=== PATIENT | female | born 1995 | race Caucasian/White ===

== ENCOUNTER 2017-10-02 00:31 | Emergency (ER) | payer SELFPAY ==
[2017-10-02] MEDS ORDERED: NS 0.9% 1000 ML* 2,000 ML IV ONE (00:46)
[2017-10-02] MEDS ORDERED: Metoclopramide IV* 5 MG/ML 2 ML VIAL IV ONE (00:46)
[2017-10-02] MEDS ORDERED: Ketorolac INJ* 30 MG/ML 1 ML VIAL IV ONE (00:46)
[2017-10-02 01:43] LABS: ABS Basophils 0.1 10^3/ul (0-0.2); ABS Eosinophils 0.1 10^3/ul (0-0.6); ABS Lymphocytes 1.4 10^3/ul (1.0-4.8); ABS Monocytes 0.7 10^3/ul (0-0.8); ABS Neutrophils 12.8 10^3/ul (1.5-7.7); ABS Nucleated RBC 0 10^3/ul; Eosinophil % 0.4 % (0-6); Hematocrit 44 % (35-47); Lymphocyte % 9.1 % (25-47); Mean Corpuscular HGB Conc 34 g/dl (31-36); Mean Corpuscular Hemoglobin 31 pg (27-31); Mean Corpuscular Volume 90 fL (80-97); Mean Platelet Volume 7.9 um3 (7.4-10.4); Nucleated Red Blood Cells % 0; Platelet Count 251 10^3/ul (150-450); Red Blood Count 4.91 10^6/ul (4.00-5.40); Red Cell Distribution Width 13 % (10.5-15); White Blood Count 14.9 10^3/ul (3.5-10.8)
[2017-10-02 02:00] LABS: EGFR Non-African American 76.1 (>60)
--- NOTE | 2017-10-02 03:46 | ED ---
Abdominal Pain/Female - HPI Summary HPI Summary: This is scribe Aurelio Martines documenting for attending Kristian Cabezas M.D. Patient is a 22 y/o F BIBA w/ c/o N/V since 2200 on 10/01/17. In the room, patient notes she is mostly dry heaving at this point. In the room, lower abdominal pain and fever is noted as well. Diarrhea is denied. Patient is concerned about food poisoning. On triage, pain is rated 5/10 and nothing is noted to aggravate/alleviate Sx. Home medications and allergies are reviewed. I, Dr. Cabezas, personally performed the services described in this documentation as scribed in my presence and it is both accurate and complete. - History of Current Complaint Chief Complaint: EDNauseaVomitDiarrh Stated Complaint: N/V Time Seen by Provider: 10/02/17 00:40 Hx Obtained From: Patient Onset/Duration: Lasting Hours - onset 10/01 at 2200 Timing: Constant Severity Currently: Moderate - 5/10 Pain Intensity: 5 Pain Scale Used: 0-10 Numeric - 5/10 Location: Other - lower abdomen Aggravating Factor(s): Nothing Alleviating Factor(s): Nothing Associated Signs and Symptoms: Positive: Fever, Nausea, Vomiting. Negative: Diarrhea Allergies/Adverse Reactions: Allergies Allergy/AdvReac Type Severity Reaction Status Date / Time No Known Allergies Allergy Verified 10/02/17 00:36 PMH/Surg Hx/FS Hx/Imm Hx Sensory History: Denies: Hx Legally Blind, Hx Deafness Opthamlomology History: Denies: Hx Legally Blind EENT History: Denies: Hx Deafness Infectious Disease History: No Infectious Disease History: Denies: Traveled Outside the [place] in Last 30 Days - Family History Known Family History: Negative: Blood Disorder - Social History Alcohol Use: None Substance Use Type: Reports: None Smoking Status (MU): Never Smoked Tobacco Review of Systems Positive: Fever Positive: Abdominal Pain - lower, Vomiting, Nausea. Negative: Diarrhea All Other Systems Reviewed And Are Negative: Yes Physical Exam - Summary Physical Exam Summary: VITAL SIGNS: Reviewed. GENERAL: Patient is a well-developed and nourished female who is lying comfortable in the stretcher. Patient is not in any acute respiratory distress. HEAD AND FACE: No signs of trauma. No ecchymosis, hematomas or skull depressions. No sinus tenderness. EYES: PERRLA, EOMI x 2, No injected conjunctiva, no nystagmus. EARS: Hearing grossly intact. Ear canals and tympanic membranes are within normal limits. MOUTH: Oropharynx within normal limits. NECK: Supple, trachea is midline, no adenopathy, no JVD, no carotid bruit, no c- spine tenderness, neck with full ROM. CHEST: Symmetric, no tenderness at palpation LUNGS: Clear to auscultation bilaterally. No wheezing or crackles. CVS: Regular rate and rhythm, S1 and S2 present, no murmurs or gallops appreciated. ABDOMEN: Soft, non-tender. No signs of distention. No rebound no guarding, and no masses palpated. Bowel sounds are normal. EXTREMITIES: FROM in all major joints, no edema, no cyanosis or clubbing. NEURO: Alert and oriented x 3. No acute neurological deficits. Speech is normal and follows commands. SKIN: Dry and warm Triage Information Reviewed: Yes Vital Signs On Initial Exam: Initial Vitals Temp Pulse Resp BP Pulse Ox 97.8 F 83 18 151/100 98 10/02/17 00:32 10/02/17 00:32 10/02/17 00:32 10/02/17 00:32 10/02/17 00:32 Vital Signs Reviewed: Yes Diagnostics - Vital Signs Vital Signs Temp Pulse Resp BP Pulse Ox 10/02/17 00:37 86 10 97 10/02/17 00:35 87 13 150/100 97 10/02/17 00:32 97.8 F 83 18 151/100 98 - Laboratory Lab Results: Lab Results 10/02/17 10/02/17 10/02/17 Range/Units 01:15 01:15 01:15 WBC 14.9 H (3.5-10.8) 10^3/ul RBC 4.91 (4.00-5.40) 10^6/ul Hgb 15.0 (12.0-16.0) g/dl Hct 44 (35-47) % MCV 90 (80-97) fL MCH 31 (27-31) pg MCHC 34 (31-36) g/dl RDW 13 (10.5-15) % Plt Count 251 (150-450) 10^3/ul MPV 7.9 (7.4-10.4) um3 Neut % (Auto) 85.7 H (38-83) % Lymph % (Auto) 9.1 L (25-47) % [place] % (Auto) 4.4 (0-7) % Eos % (Auto) 0.4 (0-6) % Baso % (Auto) 0.4 (0-2) % Absolute Neuts (auto) 12.8 H (1.5-7.7) 10^3/ul Absolute Lymphs (auto) 1.4 (1.0-4.8) 10^3/ul Absolute Monos (auto) 0.7 (0-0.8) 10^3/ul Absolute Eos (auto) 0.1 (0-0.6) 10^3/ul Absolute Basos (auto) 0.1 (0-0.2) 10^3/ul Absolute Nucleated RBC 0 10^3/ul Nucleated RBC % 0 Sodium 138 (135-145) mmol/L Potassium 3.8 (3.5-5.0) mmol/L Chloride 105 (101-111) mmol/L Carbon Dioxide 22 (22-32) mmol/L Anion Gap 11 (2-11) mmol/L BUN 11 (6-24) mg/dL Creatinine 0.93 (0.51-0.95) mg/dL Est GFR ( Amer) 92.1 (>60) Est GFR (Non-Af Amer) 76.1 (>60) BUN/Creatinine Ratio 11.8 (8-20) Glucose 147 H (70-100) mg/dL Lactic Acid 1.2 (0.5-2.0) mmol/L Calcium 9.9 (8.6-10.3) mg/dL Magnesium 2.1 (1.9-2.7) mg/dL Total Bilirubin 0.40 (0.2-1.0) mg/dL AST 23 (13-39) U/L ALT 22 (7-52) U/L Alkaline Phosphatase 61 (34-104) U/L C-Reactive Protein 2.90 (<8.01) mg/L Total Protein 7.9 (6.4-8.9) g/dL Albumin 4.7 (3.2-5.2) g/dL Globulin 3.2 (2-4) g/dL Albumin/Globulin Ratio 1.5 (1-3) Amylase 47 (29-103) U/L Lipase 29 (11.0-82.0) U/L Beta HCG, Quant < 0.60 mIU/mL Result Diagrams: 10/02/17 01:15 10/02/17 01:15 Lab Statement: Any lab studies that have been ordered have been reviewed, and results considered in the medical decision making process. Re-Evaluation - Re-Evaluation First Eval Re-Evaluation Time: 02:17 Change: Improved Comment: Patient states N/V and pain have resolved. Patient will follow up with PCP in 1-2 days. She is agreeable with plan. Abdominal Pain Fem Course/Dx - Course Course Of Treatment: Patient is a 22 y/o F BIBA w/ c/o N/V since 2200 on . In the room, patient notes she is mostly dry heaving at this point. In the room, lower abdominal pain and fever is noted as well. Diarrhea is denied. Patient is concerned about food poisoning. On triage, pain is rated 5/10 and nothing is noted to aggravate/alleviate Sx. Home medications and allergies are reviewed. Physical exam was normal. During ED course, patient was given fluids, metoclopramide Hcl 10 mg IV ED ONCE, and ketorolac Tromethamine 30 mg IV ED ONCE. Labs showed glucose 147 H, Absolute Neuts 12.8 H, Lymph % 9.1 L, WBC 14.9 H. At 0217, patient states N/V and pain have resolved. She was discharged to home w/ Dx of food poisoning and gastroenteritis. Patient will follow up with PCP in 1-2 days. She is agreeable with plan. - Diagnoses Provider Diagnoses: Food poisoning, Gastroenteritis Discharge - Sign-Out/Discharge Documenting (check all that apply): Patient Departure - discharge - Discharge Plan Condition: Stable Disposition: HOME Patient Education Materials: Gastroenteritis (ED), Food Poisoning (ED) Referrals: Care [facility] [Outside] - 2 Days Additional Instructions: Follow up with primary care physician in 1-2 days. Return to ED for any new or worsening symptoms.
[2017-10-02 03:57] VITALS: BP 114/79
== END 2017-10-02 04:01 | disposition home or self-care (01) ==
LOC: ED 00:31
DX: T62.91XA Toxic effect of unspecified noxious substance eaten as food, accidental (unintentional), initial encounter (principal); K52.1 Toxic gastroenteritis and colitis; Y92.9 Unspecified place or not applicable
CPT/HCPCS: 36415; 80053; 82150; 83605; 83690; 83735; 84702; 85025; 86140; 96361; 96374; 96375; 99283; J1885; J2765